=== PATIENT | female | born 1980 | race Caucasian/White ===

== ENCOUNTER 2021-03-04 13:05 | Outpatient (CLI) | payer BC, SELFPAY ==
[2021-03-04 14:50] LABS: HCG Quant, Pregnancy 38823 mIU/mL (1-3)
[2021-03-06 14:03] LABS: Chlamydia Result Negative (Negative); GC Result Negative (Negative)
== END 2021-03-04 13:06 | disposition home or self-care (01) ==
PROVIDERS: Visit Provider Advanced Practice Midwife
DX: O20.8 Other hemorrhage in early pregnancy (principal); Z3A.01 Less than 8 weeks gestation of pregnancy
CPT/HCPCS: 36415; 86850; 86900; 86901; 87491; 87591; 84702; 87480; 87510; 87660

== ENCOUNTER 2021-04-11 01:51 | Outpatient (CLI) | payer BC, SELFPAY ==
[2021-04-11 16:04] LABS: Kit/Specimen SENT
[2021-04-11 16:21] LABS: Abs Immature Grans 0.02 10^3/uL (0.0-0.06); Absolute Basophil Count 0.04 10^3/uL (0.0-0.2); Absolute Eosinophil Count 0.08 10^3/uL (0.0-0.7); Absolute Lymphocyte Count 1.88 10^3/uL (1.2-3.4); Absolute Monocyte Count 0.41 10^3/uL (0.1-0.8); Basophils % 0.5; HCT 37.3 % (36.0-46.0); HGB 12.9 g/dL (11.2-15.7); Immature Grans % 0.3; MCH 32.2 pg (27.0-33.0); MCHC 34.6 % (32.0-36.0); MPV 10.8 fL (8.0-11.0); Monocytes % 5.2; Nucleated RBC 0 %; Platelet Count 202 10^3/uL (130-400); RBC 4.01 10^6/uL (3.93-5.22); RDW 11.9 % (11.7-14.6); RDW-SD 40.5 fL; WBC 7.83 10^3/uL (4.4-10.8)
[2021-04-11 17:34] LABS: TSH (W/Ref FT4) 1.01 uIU/mL (0.36-3.74)
[2021-04-14 11:11] LABS: Varicella IgG Antibody Positive (See Note)
[2021-04-14 11:14] LABS: Rubella IgG Ab (UVM) Positive (See Note)
[2021-04-14 11:25] LABS: Hepatitis B Surface Ag Negative (Negative)
[2021-04-14 11:57] LABS: Hepatitis C Ab w Rflx HCV PCR Negative (Negative)
[2021-04-14 12:02] LABS: HIV-1/2 Ag & Ab Screen Negative (Negative)
[2021-04-14 16:11] LABS: Syphilis Total Ab w/Reflex Nonreactive (Nonreactive)
== END 2021-04-11 01:52 | disposition home or self-care (01) ==
LOC: LBO 01:51 → LBN 18:03
PROVIDERS: Visit Provider Advanced Practice Midwife
DX: Z34.91 Encounter for supervision of normal pregnancy, unspecified, first trimester (principal); Z11.3 Encounter for screening for infections with a predominantly sexual mode of transmission; Z11.4 Encounter for screening for human immunodeficiency virus [HIV]; Z11.59 Encounter for screening for other viral diseases; Z01.84 Encounter for antibody response examination
CPT/HCPCS: 80307; 86787; 86803; 86850; 86900; 86901; 87340; 87389; 87491; 87591; 84443; 85025; 86762; 86780; 87086

== ENCOUNTER 2021-04-11 19:29 | Outpatient (REF) | payer BC, SELFPAY ==
[2021-04-11 18:14] LABS: *AMPHETAMINES SCREEN URINE Negative (Negative); *BARBITURATES SCREEN URINE Negative (Negative); *BENZODIAZEPINES SCREEN URINE Negative (Negative); Cannabinoids THC Negative (Negative); Cocaine Screen,Urine Negative (Negative); METHADONE URINE SCREEN Negative (Negative); OPIATES URINE SCREEN Negative (Negative)
[2021-04-11 18:15] LABS: Tricyclic Antidepressants Negative (Negative)
[2021-04-14 15:20] LABS: Chlamydia Result Negative (Negative); GC Result Negative (Negative)
[2021-05-06 09:54] LABS: Buprenorphine Negative ng/mL (Cutoff: 5.0)
[2021-05-06 09:55] LABS: Norbuprenorphine Negative ng/mL (Cutoff: 2.5)
== END 2021-04-11 19:30 | disposition home or self-care (01) ==
LOC: LBN 19:29
PROVIDERS: Visit Provider Advanced Practice Midwife
DX: Z34.91 Encounter for supervision of normal pregnancy, unspecified, first trimester (principal); Z11.3 Encounter for screening for infections with a predominantly sexual mode of transmission
CPT/HCPCS: 80307; 87491; 87591; 87086

== ENCOUNTER 2021-07-11 01:18 | Outpatient (CLI) | payer BC, SELFPAY ==
[2021-07-11 12:48] LABS: TSH (W/Ref FT4) 2.32 uIU/mL (0.36-3.74)
== END 2021-07-11 01:19 | disposition home or self-care (01) ==
LOC: LBO 01:18
PROVIDERS: Visit Provider Obstetrics & Gynecology
DX: O99.282 Endocrine, nutritional and metabolic diseases complicating pregnancy, second trimester (principal); E07.9 Disorder of thyroid, unspecified; Z3A.19 19 weeks gestation of pregnancy
CPT/HCPCS: 36415; 84443

== ENCOUNTER 2021-08-08 02:55 | Outpatient (CLI) | payer BC, SELFPAY ==
[2021-08-08 10:28] LABS: Glucose,1 Hr (Glucola) 206 mg/dL (80-140)
== END 2021-08-08 02:56 | disposition home or self-care (01) ==
LOC: LBO 02:56
PROVIDERS: Obstetrics & Gynecology; Visit Provider Obstetrics & Gynecology
DX: Z34.93 Encounter for supervision of normal pregnancy, unspecified, third trimester (principal); Z3A.28 28 weeks gestation of pregnancy
CPT/HCPCS: 36415; 82950

== ENCOUNTER 2021-08-13 03:27 | Outpatient (CLI) | payer BC, SELFPAY ==
[2021-08-13 10:04] LABS: Glucose 1 Hour 155 mg/dL
[2021-08-13 11:42] LABS: Glucose 3 Hour 100 mg/dL
== END 2021-08-13 03:28 | disposition home or self-care (01) ==
LOC: LBO 03:27
PROVIDERS: Obstetrics & Gynecology Gynecology; Visit Provider Obstetrics & Gynecology
DX: O99.810 Abnormal glucose complicating pregnancy (principal)
CPT/HCPCS: 36415; 82951

== ENCOUNTER 2021-09-05 01:56 | Outpatient (CLI) | payer BC, SELFPAY ==
[2021-09-05 09:58] LABS: TSH (W/Ref FT4) 1.63 uIU/mL (0.36-3.74)
== END 2021-09-05 01:57 | disposition home or self-care (01) ==
LOC: LBO 01:56
PROVIDERS: Visit Provider Obstetrics & Gynecology
DX: O99.283 Endocrine, nutritional and metabolic diseases complicating pregnancy, third trimester (principal); Z3A.32 32 weeks gestation of pregnancy
CPT/HCPCS: 36415; 84443

== ENCOUNTER 2021-10-06 00:36 | Outpatient (CLI) | payer BC, SELFPAY ==
--- NOTE | 2021-10-06 06:30 | DI.US_ITS ---
Exam(s) US OB SHERRI WEIGHT EXAM: US OB SHERRI WEIGHT CLINICAL HISTORY: growth and SHERRI,advanced maternal age,Z34.90. TECHNIQUE: Transabdominal obstetrical ultrasound performed. COMPARISON: No exams were available for comparison FINDINGS:: Number of fetuses: One. position: Vertex. Placental location: Fundal. No evidence of previa. BIOMETRIC DATA: BPD: 91mm = 36+ 5 weeks HC: 320mm = 35+ 5 weeks AC: 326mm = 36+ 4 FL: 73 mm = 37+ 3 EFW: 3008 Gms = 61% Composite Age: 36+ 5 weeks EDC: 29 October 2021 Heart Rate: 155BPM Amniotic fluid index: 18.1 cm. Amount of fluid is within normal limits. IMPRESSION: size and weight are within the expected range. DATA REPOSITORY:
== END 2021-10-06 00:56 ==
PROVIDERS: Visit Provider Obstetrics & Gynecology
DX: O09.513 Supervision of elderly primigravida, third trimester (principal)
CPT/HCPCS: 76816

== ENCOUNTER 2021-10-06 08:35 | Outpatient (CLI) | payer BC, SELFPAY ==
[2021-10-06 08:41] VITALS: BP 115/74; PULSE 75; TEMP 37
[2021-10-06 09:00] VITALS: BP 115/74; PULSE 75
[2021-10-06 09:57] LABS: *AMPHETAMINES SCREEN URINE Negative (Negative); *BARBITURATES SCREEN URINE Negative (Negative); *BENZODIAZEPINES SCREEN URINE Negative (Negative); Cannabinoids THC Negative (Negative); Cocaine Screen,Urine Negative (Negative); METHADONE URINE SCREEN Negative (Negative); OPIATES URINE SCREEN Negative (Negative)
[2021-10-06 10:03] LABS: Tricyclic Antidepressants Negative (Negative)
[2021-10-12 10:27] LABS: Buprenorphine Negative ng/mL (Cutoff: 5.0)
[2022-04-02 08:09] VITALS: BP 115/74; PULSE 75; TEMP 37
--- NOTE | 2022-04-02 08:09 | W.OBNST ---
Date of service: 04/02/22 Time of Service: 07:09 NST Evaluation Reason for NST Reasons for Nonstress Test: ADVANCED MATERNAL AGE Gestational Age Gestational Age in Weeks and Days: 40 Weeks and 3Days Test and Monitor Explained Test/Monitor Explained: Test Explained, Monitor Explained and Patient Verbalized Understanding Vital Signs Blood Pressure: 115/74 Pulse: 75 Temperature: 98.6 F NST Information Date on Monitor: 10/06/21 Time on Monitor: 08:41 Date off Monitor: 10/06/21 Time off Monitor: 08:54 Total Time on Monitor: 13 NST Interventions: None NST Evaluation Patient States Movement: Present FHR Baseline: 135 Variability: Absent Accelerations: 15x15 Decelerations: None NST Results: Reactive Note NST Note Note: reactive NST. NST Reviewed and Verified by: Winsome Lester
== END 2021-10-06 08:57 | disposition home or self-care (01) ==
LOC: BCD 08:37 → OBS 08:39
PROVIDERS: Visit Provider Obstetrics & Gynecology Gynecology
DX: Z36.85 Encounter for antenatal screening for Streptococcus B (principal); O09.523 Supervision of elderly multigravida, third trimester
CPT/HCPCS: 59025; 80307; 87081

== ENCOUNTER 2021-10-13 07:39 | Outpatient (CLI) | payer BC, SELFPAY ==
[2021-10-13 09:48] VITALS: BP 108/67; PULSE 66; RESP 16; TEMP 36.6
--- NOTE | 2021-10-13 10:38 | W.OBNST ---
Date of service: 10/13/21 Time of Service: 10:38 NST Evaluation Reason for NST Reasons for Nonstress Test: ADVANCED MATERNAL AGE Gestational Age Gestational Age in Weeks and Days: 37 Weeks and 3Days Test and Monitor Explained Test/Monitor Explained: Patient Verbalized Understanding Vital Signs Blood Pressure: 108/67 Pulse: 66 Temperature: 97.8 F NST Information Date on Monitor: 10/13/21 Time on Monitor: 09:40 Date off Monitor: 10/13/21 Time off Monitor: 10:10 Total Time on Monitor: 30 NST Interventions: None and Notify Provider NST Evaluation Patient States Movement: Present FHR Baseline: 140 Variability: Moderate 6-25 bpm Accelerations: 15x15 Decelerations: None NST Results: Reactive Note NST Note Note: Reactive NST, category 1 strip. No contractions. Blood glucose monitoring appropriate. Group B strep culture is negative. Follow-up 1 week. NST Reviewed and Verified by: Shalonda German
[2021-10-13 10:39] VITALS: BP 108/67; PULSE 66; TEMP 36.6
== END 2021-10-13 10:20 | disposition home or self-care (01) ==
LOC: BCD 07:40 → OBS 09:41
PROVIDERS: Visit Provider Obstetrics & Gynecology
DX: O09.523 Supervision of elderly multigravida, third trimester (principal); Z3A.37 37 weeks gestation of pregnancy
CPT/HCPCS: 59025

== ENCOUNTER 2021-10-20 07:28 | Outpatient (CLI) | payer BC, SELFPAY ==
[2021-10-20 08:31] VITALS: BP 113/71; PULSE 61; TEMP 36.8
[2021-10-20 08:34] VITALS: BP 113/71; PULSE 61; RESP 16; TEMP 36.8
[2021-10-20 08:56] VITALS: BP 113/71; PULSE 61; TEMP 36.8
--- NOTE | 2021-10-20 11:15 | W.OBNST ---
Date of service: 10/20/21 Time of Service: 08:40 NST Evaluation Reason for NST Reasons for Nonstress Test: ADVANCED MATERNAL AGE Gestational Age Gestational Age in Weeks and Days: 38 Weeks and 3Days Test and Monitor Explained Test/Monitor Explained: Test Explained, Monitor Explained and Patient Verbalized Understanding Vital Signs Blood Pressure: 113/71 Pulse: 61 Temperature: 98.2 F NST Information Date on Monitor: 10/20/21 Time on Monitor: 08:32 NST Interventions: None Contraction Frequency: 0 NST Evaluation Patient States Movement: Present FHR Baseline: 135 Variability: Moderate 6-25 bpm Accelerations: 15x15 Decelerations: None NST Results: Reactive Note NST Note Note: Pt is a 41yo P4 @38.3wks here for NST due to AMA. We discussed increased monitoring vs induction at 39wks. She currently plans to return in 4 days for repeat NST and likely membrane stripping but would like to wait to schedule an induction. She also has an appt scheduled in 1wk. NST Reviewed and Verified by: Alberta Altman
[2021-10-20 11:17] VITALS: BP 113/71; PULSE 61; TEMP 36.8
== END 2021-10-20 09:10 | disposition home or self-care (01) ==
LOC: BCD 07:40 → OBS 08:28
PROVIDERS: Visit Provider Obstetrics & Gynecology Gynecology
DX: O09.523 Supervision of elderly multigravida, third trimester (principal); Z3A.38 38 weeks gestation of pregnancy
CPT/HCPCS: 59025

== ENCOUNTER 2021-10-24 08:25 | Outpatient (CLI) | payer BC, SELFPAY ==
[2021-10-24 13:13] VITALS: BP 127/76; PULSE 71; TEMP 36.7
[2021-10-24 13:20] VITALS: BP 127/76; PULSE 71
--- NOTE | 2021-10-24 14:52 | W.OBNST ---
Date of service: 10/24/21 Time of Service: 14:52 NST Evaluation Reason for NST Reasons for Nonstress Test: ADVANCED MATERNAL AGE Gestational Age Gestational Age in Weeks and Days: 39 Weeks and 0Days Test and Monitor Explained Test/Monitor Explained: Test Explained, Monitor Explained and Patient Verbalized Understanding Vital Signs Blood Pressure: 127/76 Pulse: 71 Temperature: 98.1 F NST Information Date on Monitor: 10/24/21 Time on Monitor: 13:16 Date off Monitor: 10/24/21 Time off Monitor: 13:36 Total Time on Monitor: 20 NST Interventions: None NST Evaluation Patient States Movement: Present FHR Baseline: 145 Variability: Moderate 6-25 bpm Accelerations: 15x15 Decelerations: None NST Results: Reactive Note NST Note Note: Patient was seen for NST at 39 weeks due to advanced maternal age. She is doing well. She has a category 1 strip with a reactive tracing. She has no uterine activity. Cervical exam performed at patient's request confirming a cervix that is closed, 50%, -2 station and vertex. She will be seen back on Wednesday for NST with SHERRI if not delivered by that point. NST Reviewed and Verified by: Shalonda German
[2021-10-24 14:53] VITALS: BP 127/76; PULSE 71; TEMP 36.7
== END 2021-10-24 13:45 | disposition home or self-care (01) ==
LOC: BCD 08:26 → OBS 13:11
PROVIDERS: Visit Provider Obstetrics & Gynecology
DX: O09.523 Supervision of elderly multigravida, third trimester (principal); Z3A.39 39 weeks gestation of pregnancy
CPT/HCPCS: 59025

== ENCOUNTER 2021-10-28 05:35 | Outpatient (CLI) | payer BC, SELFPAY ==
[2021-10-28 14:20] VITALS: BP 115/75; PULSE 68; TEMP 36.8
[2021-10-28 15:03] VITALS: BP 115/75; PULSE 68; TEMP 36.8
--- NOTE | 2021-10-28 15:03 | W.OBNST ---
Date of service: 10/28/21 Time of Service: 15:03 NST Evaluation Reason for NST Reasons for Nonstress Test: ADVANCED MATERNAL AGE Gestational Age Gestational Age in Weeks and Days: 39 Weeks and 4Days Test and Monitor Explained Test/Monitor Explained: Test Explained, Monitor Explained and Patient Verbalized Understanding Vital Signs Blood Pressure: 115/75 Pulse: 68 Temperature: 98.2 F Urine Results Urine Protein: Negative Urine Ketones: Negative Urine Glucose: Negative Urine Blood: Negative NST Information Date on Monitor: 10/28/21 Time on Monitor: 13:20 Date off Monitor: 10/28/21 Time off Monitor: 13:50 Total Time on Monitor: 30 NST Interventions: None NST Evaluation Patient States Movement: Present FHR Baseline: 150 Variability: Moderate 6-25 bpm Accelerations: 15x15 Decelerations: None NST Results: Reactive Note NST Note Note: Patient here today for surveillance due to advanced maternal age. She has a category 1, reactive nonstress test without uterine activity. Cervix was checked and found to be 2 cm 70% and fairly posterior. She is scheduled for induction of labor Pitocin on 10/29/2021. Risk benefits alternatives discussed with the patient. NST Reviewed and Verified by: Shalonda German
== END 2021-10-28 14:21 | disposition home or self-care (01) ==
LOC: BCD 05:37 → OBS 13:17
PROVIDERS: Visit Provider Obstetrics & Gynecology
DX: O09.523 Supervision of elderly multigravida, third trimester; Z3A.39 39 weeks gestation of pregnancy
CPT/HCPCS: 59025

== ENCOUNTER 2021-10-30 09:00 | Observation (INO) | payer BC, SELFPAY ==
--- NOTE | 2021-10-28 16:05 | W.PM.OBHPL1 ---
Date of service: 10/28/21 Time of Service: 16:05 Assessment and Plan Assessment and plan (1) : Status: Acute Assessment and plan: Patient is a 41-year-old female with history of precipitous labor and delivery with her previous . She is a grand multipara. She does have an elevated glucose tolerance test and has been checking her blood sugars intermittently which all have been normal. She has been in surveillance and she will have a labor induction at 39 weeks and 5 days. Risk benefits alternatives of induction were discussed along with increased risk for section. She is consented to Pitocin induction of labor. She is of moderate risk for shoulder dystocia due to gestational diabetes and moderate risk for bleeding due to grand multiparity along with first trimester bleeding. (2) Advanced maternal age (AMA), 40 years or greater: Status: Acute (3) Glucose intolerance of : Status: Acute OB-HPI Labor/Delivery History of Present Illness Reason for Visit: PRE NAZARIO Chief Complaint: Scheduled Induction of Labor Indication for Induction: Gestational Diabetes and Other (AMA). ETELVINA Calculator Estimated Delivery Date Method Current WG Current Estimate 10/31/21 Ultrasound #2 39w 4d Other Estimates 11/04/21 Ultrasound #1 39w 0d History of Present Expected Delivery Route/Plan - elects [facility] care FOB/ - Davey Parry, same for all children BG Specific Issues/Plan 1. Bleeding in first trimester 2. Rh negative (FOB negative as well - received documentation) 3. AMA. desires [place] 04/11/21: result= low prob x3, female fetus - Level II US and MFM visit to be done at 19 weeks at [facility] per patient preference: WNL, placenta anterior posterior right lateral, breech - Recommend: US at 34 weeks. 10/05/21. SHERRI 18. EFW 61% - NST semi weekly at 37 weeks. initiated on 10/05/21. - Delivery in 39th week 4. History of precipitous labor and delivery 5. Records release for previous SMA/CF/PAP done 04/11/21 5a. CF and SMA as well as Familial Disautonomia, Fragile X, Ritu's, Erick Sach's and Maple Syrup etc.: all negative 06/10/2017 5b. Pap EVELIO 05/17/2018 6. Diastasis recti- referred to PT 7. Impaired Glucose tolerance.(1 elevated value on 3hr GTT but 1hr >200). - Dietatry restrictions in place - Checking periodic FS - Growth sono at 36wks 10/05/21. SHERRI 18. EFW 61% Review of Systems All systems reviewed & are unremarkable except as noted in HPI and below Constitutional Constitutional: Denies chills, Denies fatigue, Denies lethargy and Denies poor appetite Eyes Eyes: Reports system reviewed and no additional complaints, except as documented ENT Ears, Nose, Mouth, and Throat: Reports system reviewed and no additional complaints, except as documented Cardiovascular Cardiovascular: Denies chest pain and Denies irregular heart rhythm Respiratory Respiratory: Denies chest congestion and Denies cough Gastrointestinal Gastrointestinal: Reports system reviewed and no additional complaints, except as documented Genitourinary Genitourinary: Reports system reviewed and no additional complaints, except as documented Musculoskeletal Musculoskeletal: Reports system reviewed and no additional complaints, except as documented Psychiatric Psychiatric: Reports system reviewed and no additional complaints, except as documented Endocrine Endocrine: Denies fatigue PFSH All Active Problems (Updated 08/26/21 @ 11:09 by Alberta Altman MD) Glucose intolerance of (Acute) Diastasis of rectus abdominis (Acute) (Acute) History of precipitous labor and deliveries in third trimester, antepartum (Acute) Rh negative status during (Acute) Antepartum bleeding, first trimester (Acute) Advanced maternal age (AMA), 40 years or greater (Acute) Bleeding in early (Acute) Family History (Updated 03/04/21 @ 16:37 by Karly Coyne CNM) Father Diabetes Heart disease Hyperlipidemia Hypertension Mother Thyroid disorder FH: brain aneurysm Paternal Aunt Ovarian cancer Social History (Updated 03/04/21 @ 16:38 by Karly Coyne CNM) Smoking/Tobacco Use Status: Never Second Hand Exposure: No Smoking risk assessment performed?: Yes Female Reproductive History Menstrual Age of Menarche: 12 control method: none History History 5 Para 4 Hx # Term Pregnancies 4 Multiple births 0 Hx # Pregnancies 0 Ectopic pregnancies 0 AB induced 0 Hx Number of Living Children 4 AB spontaneous 0 Past Pregnancies Del. Date GA/Weeks # Outcome Route Wgt Sex Labor Lgth Anesthesia Location Prov Complic 04/27/13 40 No Successful vaginal Male 6 09/03/15 40 No Successful vaginal Female 6 12/23/17 40 No Successful vaginal Female 3 11/06/19 40 No Successful vaginal Female precipitous Delivery Date: 04/27/13 born in [place], no complications, unable to tell weight or gestational age, just full term and average weight Karly Coyne Delivery Date: 09/03/15 Born in [place], unable to tell exact gestation just full term and 'average weight no complications of or Karly Coyne Delivery Date: 12/23/17 Born in [place], no complications or delivery complications, average weight full term Karly Coyne Delivery Date: 11/06/19 Born in [place], no complications, delivery complicated by precipitous labor and delivery then baby had pneumothorax but did well. Karly Coyne Meds Allergies and Home Medications Allergies Allergy/AdvReac Type Severity Reaction Status Date / Time No Known Allergies Allergy Verified 10/06/21 08:06 Home Medications Medication Instructions Recorded Confirmed Type vits no.126-ferrous fum 1 tab PO DAILY tab 03/04/21 10/27/21 History 28 mg iron-folic acid 800 mcg tablet Exam Physical Exam Vital Signs Reviewed: Yes Constitutional Constitutional: no acute distress, thin and cooperative Detailed Labor and Delivery Exam Dilation: 2 Effacement (%): 70 station: 0 Position: LUIS Cervix position: posterior Consistency: soft Reyes Score: Cervical Points Exam 0 1 2 3 Dilation Closed 1-2cm 3-4 cm 5-6cm Effacement 0-30% 40-50% 60-70% 80% Consistency Firm Medium Soft Station -3 -2 -1,0 +1,+2 Position Posterior Mid Anterior REYES Score(Cervical Ripeness Score): 8 Amniotic Membrane Status: Intact HEENT Exam HEENT Exam: Normal Neck Exam Neck Exam: Normal Respiratory Exam Respiratory Exam: Normal Cardiovascular Exam Cardiovascular Exam: Normal Abdominal Exam Abdominal Exam: Normal Detailed Extremities Exam Extremities: Absent cyanosis, clubbing, edema and Ivone's sign Results Results Group Beta Strep: Negative Blood Type: O- Rubella Status: Immune Varicella Immunity: Immune Abnormal Lab Findings: Elevated glucose tolerance test of 206. Risk Assessment Risk for Shoulder Dystocia Historical/Initial OB: NEGATIVE FOR: Pelvic Abnormality, Pre- BMI>30, Previous Shoulder Dystocia or Previous Macrosomia Risk for Pre-Eclampsia Yes, if one or more: NEGATIVE FOR: Hx Pre-E/Gest HTN, Chronic HTN, Multiple Gestation, Pre-gestational DM, Renal Disease, Systemic Lupus or APA Syndrome Yes, if 2 or more: POSITIVE FOR: Age>= 35 yrs Risk for Post- Hemorrhage Initial: POSITIVE FOR: Grand Multiparity; NEGATIVE FOR: Multiple Gestation, Previous PPH, Known Clotting Deficiency or Anticoagulation Risks Reviewed Risks Reviewed Upon Admission: Yes
[2021-10-30] VITALS (13 sets, daily range): BP systolic 108–139; BP diastolic 55–76; PULSE 65–113; RESP 16; TEMP 36.9–37.4; O2SAT 98–100
[2021-10-30 10:23] LABS: Source Nasal/Nares
[2021-10-30 11:10] LABS: COVID-19 PCR Negative (Negative)
--- NOTE | 2021-10-30 12:06 | PDOC.NST_ITS ---
Date of service: 10/30/21 Time of Service: 14:10 NST Evaluation Gestational Age Gestational Age in Weeks and Days: 39 Weeks and 6Days Note SHERRI Results of SHERRI: 10 cm NST Note Note: Present of the center for the possibility of a labor induction due to advanced maternal age, impaired glucose tolerance. She requested cervical examination of the cervix was found to be 1 cm, 70%. She was offered cervical ripening followed by Pitocin. After 45 minutes of conversation, she declined intervention. She does have a category 1 strip with a reactive nonstress test. Bedside ultrasound was also performed to confirm vertex position, and an amniotic fluid index of 10 cm. In light of this, with current reassuring status and relatively unfavorable cervix, I do feel it is appropriate that she be discharged home. She is scheduled for repeat nonstress test and evaluation on 11/01/2021. She was instructed on appropriate movement and kick counts. She w ishes to wait for spontaneous labor. She does understand that, with advanced maternal age, and aging placenta, her risks do increase. NST Reviewed and Verified by: Shalonda German
--- NOTE | 2021-10-30 14:12 | W.PM.PROGNOT ---
Date of Service Date of service: 10/30/21 Time of Service: 14:12 Subjective Subjective Patient reports: no new complaints Interval history since last seen: Patient was seen and evaluated on the center for the possibility of labor induction. This has been scheduled for a few days. On presentation, she has apprehension about labor induction. We spent 45 minutes in conversation regarding the appropriateness of labor induction at 39 weeks and 6 days with advanced maternal age. She also has a history of 1st trimester bleeding and has known glucose intolerance. She has a history of precipitous labors and deliveries in the past. Her cervix was found to be 1 cm, 70%, posterior. We did discuss the fact that this would require cervical ripening and the modalities were discussed. I do think that she would respond nicely both with a small amount of cervical ripening and Pitocin augmentation of her labor. At this point she declined intervention. Reassurance was given. Kick counts were discussed. She will be discharged to home and follow-up in 2 days for repeat nonstress testing. She does request that she have cervical lamination at that time. Objective Last Vital Signs Temp 98.5 F 10/30/21 11:41 Pulse 65 10/30/21 11:41 Resp 16 10/30/21 11:41 BP 112/55 L 10/30/21 11:41 Laboratory Results - last 24 hr 10/30/21 10:00 COVID-19 Source Nasal/Nares SARS-CoV-2 (PCR) Negative
== END 2021-10-30 12:25 | disposition home or self-care (01) ==
PROVIDERS: Obstetrics & Gynecology; Admitting Provider Obstetrics & Gynecology Gynecology; Visit Provider Obstetrics & Gynecology Gynecology
DX: O99.810 Abnormal glucose complicating pregnancy (principal); Z3A.39 39 weeks gestation of pregnancy; Z20.822 Contact with and (suspected) exposure to COVID-19
CPT/HCPCS: 87635; G0378

== ENCOUNTER 2021-11-01 08:24 | Outpatient (CLI) | payer BC, SELFPAY ==
[2021-11-01 08:32] VITALS: BP 118/66; PULSE 60; TEMP 36.8
[2021-11-01 08:38] VITALS: BP 118/66; PULSE 60; TEMP 36.8
[2021-11-01 09:09] VITALS: BP 118/66; PULSE 60; TEMP 36.8
--- NOTE | 2021-11-01 09:34 | W.OBNST ---
Date of service: 11/01/21 Time of Service: 09:40 NST Evaluation Reason for NST Reasons for Nonstress Test: ADVANCED MATERNAL AGE Gestational Age Gestational Age in Weeks and Days: 40 Weeks and 1Days Test and Monitor Explained Test/Monitor Explained: Test Explained, Monitor Explained and Patient Verbalized Understanding Vital Signs Blood Pressure: 118/66 Pulse: 60 Temperature: 98.2 F Urine Results Urine Protein: Negative Urine Ketones: Negative Urine Glucose: Negative Urine Blood: Positive NST Information Date on Monitor: 11/01/21 Time on Monitor: 08:29 Date off Monitor: 11/01/21 Time off Monitor: 08:51 Total Time on Monitor: 22 NST Interventions: None Contraction Frequency: x1 NST Evaluation Patient States Movement: Present FHR Baseline: 130 Variability: Moderate 6-25 bpm Accelerations: 15x15 Decelerations: None NST Results: Reactive Note NST Note Note: Pt here at 40.1wks for NST for AMA. Cx: 3/70/-1/soft/midplane. Membranes stripped. Offered AROM induction. She declines. Cautioned to call and/or come in as soon as anything changes. Will return tomorrow for repeat NST/eval. NST Reviewed and Verified by: Alberta Altman
[2021-11-01 09:43] VITALS: BP 118/66; PULSE 60; TEMP 36.8
== END 2021-11-01 09:17 | disposition home or self-care (01) ==
LOC: OBS 11-03 12:44 → BCD 11-03 12:44
PROVIDERS: Visit Provider Obstetrics & Gynecology
DX: O09.523 Supervision of elderly multigravida, third trimester (principal); O48.0 Post-term pregnancy; Z3A.40 40 weeks gestation of pregnancy
CPT/HCPCS: 59025

== ENCOUNTER 2021-11-02 07:48 | Outpatient (CLI) | payer BC, SELFPAY ==
[2021-11-02 11:24] VITALS: BP 122/78; PULSE 65; TEMP 36.8
[2021-11-02 11:25] VITALS: BP 122/78; PULSE 65
[2021-11-02 11:28] VITALS: BP 122/78; PULSE 65
[2021-11-02 11:59] VITALS: BP 122/78; PULSE 65; TEMP 36.8
--- NOTE | 2021-11-02 12:10 | W.OBNST ---
Date of service: 11/02/21 Time of Service: 12:12 NST Evaluation Reason for NST Reasons for Nonstress Test: POSTDATES and ADVANCED MATERNAL AGE Gestational Age Gestational Age in Weeks and Days: 40 Weeks and 2Days Test and Monitor Explained Test/Monitor Explained: Test Explained, Monitor Explained and Patient Verbalized Understanding Vital Signs Blood Pressure: 122/78 Pulse: 65 Temperature: 98.2 F Urine Results Urine Protein: Negative Urine Ketones: Negative Urine Glucose: Negative Urine Blood: Negative NST Information Date on Monitor: 11/02/21 Time on Monitor: Date off Monitor: 11/02/21 Time off Monitor: : Total Time on Monitor: 1 NST Interventions: None Contraction Frequency: x1 NST Evaluation Patient States Movement: Present FHR Baseline: 125 Variability: Moderate 6-25 bpm Accelerations: 15x15 Decelerations: None NST Results: Reactive Note SHERRI Results of SHERRI: 13.4 NST Note Note: Here for postdates NST. Has some irregular ctxs but no significant change since yesterday. Cx: 4/80/-1/soft/mid. We discussed the risks vs benefits of indcution via AROM with possible need for pitocin vs waiting another day. Current status is reassuring but we can't always predict or anticipate a stillbirth and that is our primary concern with postdates AMA. NST Reviewed and Verified by: Alberta Altman
[2021-11-02 12:15] VITALS: BP 122/78; PULSE 65; TEMP 36.8
== END 2021-11-02 14:40 | disposition home or self-care (01) ==
LOC: BCD 08:45 → OBS 10:25
PROVIDERS: Visit Provider Obstetrics & Gynecology
DX: O48.0 Post-term pregnancy (principal); O09.523 Supervision of elderly multigravida, third trimester; Z3A.40 40 weeks gestation of pregnancy
CPT/HCPCS: 59025; G0378

== ENCOUNTER 2021-11-03 09:30 | Inpatient (IN) | payer BC, SELFPAY ==
[2021-11-03] VITALS (13 sets, daily range): BP systolic 102–122; BP diastolic 64–76; PULSE 57–117; RESP 18–20; TEMP 36.7–37.6; O2SAT 97–100
[2021-11-03 11:23] LABS: Source Nasal/Nares
[2021-11-03 11:26] LABS: HCT 42.1 % (36.0-46.0); HGB 13.7 g/dL (11.2-15.7); MCH 32.2 pg (27.0-33.0); MCHC 32.5 % (32.0-36.0); MCV 98.8 fL (80-95); MPV 10.5 fL (8.0-11.0); Platelet Count 173 10^3/uL (130-400); RBC 4.26 10^6/uL (3.93-5.22); RDW-SD 43.8 fL; WBC 6.73 10^3/uL (4.4-10.8)
--- NOTE | 2021-11-03 13:19 | W.OBDELIVERY ---
Date of service: 11/03/21 Time of Service: 12:30 OB Labor/ Delivery Information Baby A Delivery Delivery Method: Spontaneaous Presentation: Cephalic Vertex Position: Right Occipital Anterior Cord Description-Baby A: 3 Vessels Cord Description Comment: nuchal cord x1 Amniotic Fluid: Meconium (light) Estimated Blood Loss: 200 Delivery Outcome: Liveborn Infant Transferred: Remains with Mother Note: The pt was found to be fully dilated. She pushed <20mins to deliver the infant's head in LUIS position, one nuchal cord easily reduced, followed by delivery of the shoulders and the rest of the body. The baby was placed on mom's abdomen. After >1min the cord was clamped x2 and cut. Cord blood collected. The placenta delivered with gentle cord traction and fundal massage and appeared intact. Fundus was firm with good hemostasis. Mom and baby stable at time of note. Providers Doctor: Alberta Altman Nurse: Anita Calloway Nurse: Khushbu Ramsey Labor/Delivery Information Number of Babies in Womb: 1 Reason Steroids Not Administered: N/A Group Beta Strep: Negative Maternal Complications: None Shoulder Dystocia: No Stages of Labor Onset of Labor Date: 11/03/21 Onset of Labor Time: 08:10 Complete Dilatation Date: 11/03/21 Complete Dilatation Time: 12:20 Labor - Stage 1 Duration: 0 minutes ROM Baby A: 11/03/21 ROM Baby A: 08:10 ROM Total Time- Baby A: [id number] Delivery Date-Baby A: 11/03/21 Delivery Time-Baby A: 12:39 Labor Stage 2 Duration: 19 minutes Placenta Delivery Date-Baby A: 11/03/21 Placenta Delivery Time-Baby A: 12:44 Labor-Stage 3 Duration: 5 minutes Total Length of Labor-Baby A: 4 hours and 29 minutes Placenta Cultured: No Placenta Status: Delivered Baby A Gender: Female Gestational Status: Term (39-41.6 wks) Gestational Age in Weeks/Days: 40 Weeks and 3 Days weight: 8 lb 7 oz Score-1 Minute Interval(Baby A) Heart Rate-1 minute: 100 BPM or Greater Respiratory Effort- 1 minute: Spontaneous/Strong Cry Muscle Tone-1 minute: Active Movement Reflex Response-1 minute: Prompt Response Color-1 minute: Pallor or Cyanosis Total Score-1 minute: 8 Score-5 Minute Interval(Baby A) Heart Rate- 5 minute: 100 BPM or Greater Respiratory Effort-5 minute: Spontaneous/Strong Cry Muscle Tone-5 minute: Active Movement Reflex Response-5 minute: Prompt Response Color-5 minute: Bluish Hands or Feet Total Score- 5 minute: 9
[2021-11-03 14:01] LABS: COVID-19 PCR Negative (Negative)
[2021-11-04 10:30] VITALS: BP 132/75; PULSE 77; RESP 16; TEMP 36.8
--- NOTE | 2021-11-04 10:45 | W.PM.OBPNV1 ---
Date of service: 11/04/21 Time of Service: 10:45 Assessment and Plan Assessment and plan (1) Normal spontaneous vaginal delivery: Status: Acute Assessment and plan: Patient is day #1 status post normal spontaneous vaginal delivery. was located by first trimester bleeding, impaired glucose tolerance, and advanced maternal age. She had onset of spontaneous labor and delivered a viable female infant. She is doing well day #1. I would anticipate discharge home tomorrow. She and her partner use a barrier method for contraception. They are planning another when her menses resume. (2) Glucose intolerance of : Status: Acute (3) Diastasis of rectus abdominis: Status: Acute Subjective Subjective Interval history: Patient seen and examined day #1. She is doing well. She is breast-feeding without difficulty. Lochia is physiologic. Her mood is appropriate. She would like to stay until tomorrow to continue to work on breast-feeding and some recovery. Patient comments: No complaints, Pain well controlled and Tolerating diet [place] baby status: Doing well, Nursing well, Rooming in and Strong Bonding Observed [place] feeding status: Exclusively breast feeding Exam Physical Exam Vital signs: Temp Pulse Resp BP Pulse Ox 98.1 F 57 L 18 118/66 97 11/03/21 20:00 11/03/21 20:00 11/03/21 20:00 11/03/21 20:00 11/03/21 16:54 Constitutional Constitutional: no acute distress HEENT Exam HEENT Exam: Normal Neck Exam Neck Exam: Normal Respiratory Exam Respiratory Exam: Normal Cardiovascular Exam Cardiovascular Exam: Normal Abdominal Exam Comments: Abdomen is soft and nontender. Uterus firm, 4 cm below the umbilicus. Moderate diastases recti Fundal Exam Fundus: Below Umbilicus and Firm Comment: Nontender Extremities Exam Extremity Exam: Normal and Full ROM; negative Calf Tenderness and Edema Skin Exam Skin Exam: Normal Neurological Exam Neurological Exam: Normal DetailedPsychiatric Exam Psych Exam: Normal Affect, Normal Thougth Process, Cooperative, Good Insight and Good Judgement Results Hemoglobin/Hematocrit: Hgb 13.7 g/dL (11.2-15.7) 11/03/21 11:15 Hct 42.1 % (36.0-46.0) 11/03/21 11:15 Abnormal Lab Findings: Abnormal Labs 11/03/21 11:15 MCV 98.8 H
[2021-11-04] MEDS: Docusate Sodium 100 MG CAP PO (11:13)
[2021-11-04 13:30] VITALS: BP 104/65; PULSE 66; TEMP 36.3
--- NOTE | 2021-11-04 13:30 | W.PM.OBHPL1 ---
Date of service: 11/03/21 Time of Service: 10:30 Assessment and Plan Assessment and plan (1) Active labor at term: Status: Acute OB-HPI Labor/Delivery History of Present Illness Reason for Visit: Term Labor Chief Complaint: Uterine Contractions; Suspected Rupture of Membranes (gross rupture) , Associated Signs and Symptoms of Suspected ROM: gross rupture. ETELVINA Calculator Estimated Delivery Date Method Current WG Current Estimate 10/31/21 Ultrasound #2 40w 4d Other Estimates 11/04/21 Ultrasound #1 40w 0d History of Present Expected Delivery Route/Plan - elects MD care FOB/ - Davey Parry, same for all children BG Specific Issues/Plan 1. Bleeding in first trimester 2. Rh negative (FOB negative as well - received documentation) 3. AMA. desires [place] 04/11/21: result= low prob x3, female fetus - Level II US and MFM visit to be done at 19 weeks at [facility] per patient preference: WNL, placenta anterior posterior right lateral, breech - Recommend: US at 34 weeks. 10/05/21. SHERRI 18. EFW 61% - NST semi weekly at 37 weeks. initiated on 10/05/21. - Delivery in 39th week 4. History of precipitous labor and delivery 5. Records release for previous SMA/CF/PAP done 04/11/21 5a. CF and SMA as well as Familial Disautonomia, Fragile X, Ritu's, Erick Sach's and Maple Syrup etc.: all negative 06/10/2017 5b. Pap EVELIO 05/17/2018 6. Diastasis recti- referred to PT 7. Impaired Glucose tolerance.(1 elevated value on 3hr GTT but 1hr >200). - Dietatry restrictions in place - Checking periodic FS - Growth sono at 36wks 10/05/21. SHERRI 18. EFW 61% Review of Systems Constitutional Constitutional: Denies chills and Denies fever(s) Genitourinary Genitourinary: Reports system reviewed and no additional complaints, except as documented PFSH All Active Problems (Updated 11/04/21 @ 13:34 by Alberta Altman MD) Active labor at term (Acute) Normal spontaneous vaginal delivery (Acute) Glucose intolerance of (Acute) Diastasis of rectus abdominis (Acute) attending PT visits Rh negative status during (Acute) Pt's is also Rh negative - lab results provided Advanced maternal age (AMA), 40 years or greater (Acute) Medical History (Updated 11/04/21 @ 13:34 by Alberta Altman MD) History of precipitous labor and deliveries in third trimester, antepartum Family History (Updated 03/04/21 @ 16:37 by Karly Coyne CNM) Father Diabetes Heart disease Hyperlipidemia Hypertension Mother Thyroid disorder FH: brain aneurysm Paternal Aunt Ovarian cancer Social History (Updated 03/04/21 @ 16:38 by Karly Coyne CNM) Smoking/Tobacco Use Status: Never Second Hand Exposure: No Smoking risk assessment performed?: Yes Alcohol Intake: never Drug use: Never Substance use type: does not use Do you feel safe at home: Yes Do you feel safe in your relationship?: Yes Female Reproductive History Menstrual Age of Menarche: 12 control method: none History History 5 Para 4 Hx # Term Pregnancies 4 Multiple births 0 Hx # Pregnancies 0 Ectopic pregnancies 0 AB induced 0 Hx Number of Living Children 4 AB spontaneous 0 Past Pregnancies Del. Date GA/Weeks # Outcome Route Wgt Sex Labor Lgth Anesthesia Location Prov Complic 04/27/13 40 No Successful vaginal Male 6 09/03/15 40 No Successful vaginal Female 6 12/23/17 40 No Successful vaginal Female 3 11/06/19 40 No Successful vaginal Female precipitous Delivery Date: 04/27/13 born in [place], no complications, unable to tell weight or gestational age, just full term and average weight Karly Coyne Delivery Date: 09/03/15 Born in [place], unable to tell exact gestation just full term and 'average weight no complications of or Karly Coyne Delivery Date: 12/23/17 Born in [place], no complications or delivery complications, average weight full term Karly Coyne Delivery Date: 11/06/19 Born in [place], no complications, delivery complicated by precipitous labor and delivery then baby had pneumothorax but did well. Karly Coyne Meds Allergies and Home Medications Allergies Allergy/AdvReac Type Severity Reaction Status Date / Time No Known Allergies Allergy Verified 11/03/21 11:06 Home Medications Medication Instructions Recorded Confirmed Type vits no.126-ferrous fum 1 tab PO DAILY tab 03/04/21 11/03/21 History 28 mg iron-folic acid 800 mcg tablet Exam Physical Exam Vital signs: Temp Pulse Resp BP Pulse Ox 98.1 F 57 L 18 118/66 97 11/03/21 20:00 11/03/21 20:00 11/03/21 20:00 11/03/21 20:00 11/03/21 16:54 Constitutional Constitutional: mild distress and cooperative Detailed Labor and Delivery Exam Dilation: 6 station: 0 (per RN) Rangel Score: Cervical Points Exam 0 1 2 3 Dilation Closed 1-2cm 3-4 cm 5-6cm Effacement 0-30% 40-50% 60-70% 80% Consistency Firm Medium Soft Station -3 -2 -1,0 +1,+2 Position Posterior Mid Anterior Amniotic Membrane Status: Ruptured (grossly) Rupture Method: Spontaneous Amniotic Fluid: Clear Fetus A Heart Rate Baseline: 140 Monitor Accelerations: 15 X 15 Monitor Decelerations: None Variability: Moderate (6-25 BPM) Presentation: Vertex Categories: Category I Date of Membrane Rupture: 11/03/21 Time of Membrane Rupture: 08:10 Detailed HEENT Exam Head: Present normocephalic and atraumatic Detailed Abdominal Exam Comments: gravid, nontender Exam Exam: Normal Detailed Neurological Exam Neurological: Present alert, oriented X3 and CN II-XII intact DetailedPsychiatric Exam Psychiatric: Present normal affect, normal thought process and cooperative Results Results Group Beta Strep: Negative Blood Type: O- Rubella Status: Immune Varicella Immunity: Immune Abnormal Lab Findings: Abnormal Labs 11/03/21 11:15 MCV 98.8 H Risk Assessment Risk for Shoulder Dystocia Historical/Initial OB: NEGATIVE FOR: Pelvic Abnormality, Pre- BMI>30, Previous Shoulder Dystocia or Previous Macrosomia Risk for Pre-Eclampsia Yes, if one or more: NEGATIVE FOR: Hx Pre-E/Gest HTN, Chronic HTN, Multiple Gestation, Pre-gestational DM, Renal Disease, Systemic Lupus or APA Syndrome Yes, if 2 or more: POSITIVE FOR: Age>= 35 yrs Risk for Post- Hemorrhage Initial: POSITIVE FOR: Grand Multiparity; NEGATIVE FOR: Multiple Gestation, Previous PPH, Known Clotting Deficiency or Anticoagulation Risks Reviewed Risks Reviewed Upon Admission: Yes
[2021-11-04 16:00] VITALS: BP 121/78; PULSE 67; RESP 16; TEMP 36.2; O2SAT 96
[2021-11-04 19:50] VITALS: BP 120/80; PULSE 57; RESP 18; TEMP 36.4
--- NOTE | 2021-11-05 07:21 | W.PM.OBPNV1 ---
Date of service: 11/05/21 Time of Service: 07:21 Assessment and Plan Assessment and plan (1) Normal spontaneous vaginal delivery: Status: Acute Assessment and plan: day #2 status post normal spontaneous vaginal deliveries at term. complicated by glucose intolerance and advanced maternal age. Doing well. Routine care. Discharge home today. (2) Glucose intolerance of : Status: Acute Subjective Subjective Interval history: Patient seen and examined this morning. Doing well. Ready for discharge. Breast-feeding without difficulty. Patient comments: No complaints and Pain well controlled Patient's Mood: Appropriate [place] baby status: Doing well and Rooming in feeding status: Exclusively breast feeding Exam Physical Exam Vital signs: Temp Pulse Resp BP Pulse Ox 97.6 F 57 L 18 120/80 96 11/04/21 19:50 11/04/21 19:50 11/04/21 19:50 11/04/21 19:50 11/04/21 16:00 Constitutional Constitutional: no acute distress HEENT Exam HEENT Exam: Normal Detailed Neck Exam Neck exam general surgery: Present supple Respiratory Exam Respiratory Exam: Normal Cardiovascular Exam Cardiovascular Exam: Normal Abdominal Exam Abdomen: Diastasis Comments: Soft, nontender, diastases present Fundal Exam Fundus: Below Umbilicus and Firm Extremities Exam Extremity Exam: Normal; negative Edema Skin Exam Skin Exam: Normal Psychiatric Exam Psychiatric Exam: Normal DetailedPsychiatric Exam Psych Exam: Normal Affect, Normal Thougth Process, Cooperative and Good Judgement Results Hemoglobin/Hematocrit: Hgb 13.7 g/dL (11.2-15.7) 11/03/21 11:15 Hct 42.1 % (36.0-46.0) 11/03/21 11:15 Abnormal Lab Findings: Abnormal Labs 11/03/21 11:15 MCV 98.8 H
--- NOTE | 2021-11-05 07:26 | DSE_ITS ---
Date of service: 11/05/21 Time of Service: 07:26 DS: Diagnosis Discharge Diagnosis (1) Normal spontaneous vaginal delivery: Status: Acute Asessment and Plan: day #2, doing well. Discharge home (2) Glucose intolerance of : Status: Acute (3) AMA (advanced maternal age) multigravida 35+: Status: Acute Discharge Plan Disposition Patient Disposition: HOME Condition: Good Discharge Details Reason For Visit: Term Labor Admit Date/Time: 11/03/21 09:30 Admit Provider: Alberta Altman Attending Provider: Alberta Altman Primary Care Provider: Unknown,Unknown Hospital Course Hospital Course: Patient presented to the center in early active labor. She is spontaneous rupture of membranes and went on to deliver a viable female . Her labor was normal course. She had an uncomplicated course and was discharged home day #2 ambulating, tolerating a regular diet and oral pain medication with her jaundice. She is breast-feeding working. Be seen back in the office in 6 weeks. Home Meds and New Rx's Prescriptions: New ibuprofen 800 mg tablet 800 mg PO Q8H PRNQty: 30 RF: 0 Continued Classic 28 mg iron- 800 mcg tablet 1 tab PO DAILY RF: 0 Discharge Instructions Stand Alone Forms: BC Post Vaginal Deliver Activity:: Pelvic rest Equipment/Supplies:: No Equipment Needed Diet:: As Tolerated Discharge Orders Discharge Orders: Discharge Order (Routine); Ordered 11/05/21 Ordered By: Shalonda German OB:DS Summary Summary Vaginal Delivery Method: Spontaneaous Laceration Description: Periurethral Laceration Extension: N/A Contraception Discussed Contraception Discussed: Yes Contraceptive Plan: Not planning to use, Infant Gender-Baby A: Female weight: 8 lb 7 oz Status at Discharge Functional status at discharge: independent ambulation Overall status at discharge: patient is back to baseline Mental Status: mental status grossly normal Speech and Movement: speech and movement normal Mood: congruent mood Affect: normal affect Exam Physical Exam Vital signs: Temp Pulse Resp BP Pulse Ox 97.6 F 57 L 18 120/80 96 11/04/21 19:50 11/04/21 19:50 11/04/21 19:50 11/04/21 19:50 11/04/21 16:00 Constitutional Comments: See physical exam from progress note dated 11/05/2021 [facility] All Active Problems AMA (advanced maternal age) multigravida 35+ (Acute) Active labor at term (Acute) Normal spontaneous vaginal delivery (Acute) Glucose intolerance of (Acute) Diastasis of rectus abdominis (Acute) attending PT visits Rh negative status during (Acute) Pt's is also Rh negative - lab results provided Advanced maternal age (AMA), 40 years or greater (Acute) Medical History History of precipitous labor and deliveries in third trimester, antepartum Family History Father Diabetes Heart disease Hyperlipidemia Hypertension Mother Thyroid disorder FH: brain aneurysm Paternal Aunt Ovarian cancer Social History Smoking/Tobacco Use Status: Never Second Hand Exposure: No Smoking risk assessment performed?: Yes Alcohol Intake: never Drug use: Never Substance use type: does not use Do you feel safe at home: Yes Do you feel safe in your relationship?: Yes Female Reproductive History Menstrual Age of Menarche: 12 control method: none History History 5 Para 4 Hx # Term Pregnancies 4 Multiple births 0 Hx # Pregnancies 0 Ectopic pregnancies 0 AB induced 0 Hx Number of Living Children 4 AB spontaneous 0 Past Pregnancies Del. Date GA/Weeks # Outcome Route Wgt Sex Labor Lgth Anesthes ia Location Prov Complic 04/27/13 40 No Successful vaginal Male 6 09/03/15 40 No Successful vaginal Female 6 12/23/17 40 No Successful vaginal Female 3 11/06/19 40 No Successful vaginal Female precipitous Delivery Date: 04/27/13 born in [place], no complications, unable to tell weight or gestational age, just full term and average weight Karly Coyne Delivery Date: 09/03/15 Born in [place], unable to tell exact gestation just full term and 'average weight no complications of or Karly Coyne Delivery Date: 12/23/17 Born in [place], no complications or delivery complications, average weight full term Karly Coyne Delivery Date: 11/06/19 Born in [place], no complications, delivery complicated by precipitous labor and delivery then baby had pneumothorax but did well. Karly Coyne DS: Data Vitals/I&O Vitals and I&O: Vital Signs Temperature 97.6 F 11/04/21 19:50 Pulse 57 L 11/04/21 19:50 Pulse Rhythm Regular 11/04/21 19:34 Respiratory Rate 18 11/04/21 19:50 Blood Pressure 120/80 11/04/21 19:50 Blood Pressure Mean 93 11/04/21 19:50 Pulse Oximetry 96 11/04/21 16:00 Oxygen Delivery Method Room Air 11/03/21 11:09 Oxygen Flow Rate 0 11/03/21 11:09 Comment 11/04/21 08:41
[2021-11-05 08:00] VITALS: BP 110/71; PULSE 59; TEMP 37; O2SAT 100
[2021-11-05] MEDS: Docusate Sodium 100 MG CAP PO (08:08)
== END 2021-11-05 10:00 | disposition home or self-care (01) | DRG 806 ==
PROVIDERS: Admitting Provider Obstetrics & Gynecology; Visit Provider Obstetrics & Gynecology
DX: O99.814 Abnormal glucose complicating childbirth (principal); O36.0930 Maternal care for other rhesus isoimmunization, third trimester, not applicable or unspecified; Z37.0 Single live birth; Z3A.40 40 weeks gestation of pregnancy; O69.81X0 Labor and delivery complicated by cord around neck, without compression, not applicable or unspecified; O71.89 Other specified obstetric trauma
CPT/HCPCS: 36415; 85027; 86850; 86900; 86901; 87635

== ENCOUNTER 2021-12-22 08:54 | Outpatient (REF) | payer BC, SELFPAY ==
--- NOTE | 2021-12-22 08:20 | PAPFT_PTH ---
PATIENT: Antonia George LOC: [facility] U#:[id number] AGE/SX: 41/F ROOM: RE12/22/[address]: Shalonda German DO : 1980 BED: DIS: 12/22/2021 SPEC #: [id number] RECD: 12/22/21 12:57 STATUS: CHANCE REQ #: [id number] SARAVANAN: 12/22/21 08:[address]: Shalonda German DEPT: [facility] Cytology RECD BY: Irlanda Sutton ENTERED: 12/22/21 12:58 SP TYPE: PAPFT OTHR DR: Unknown,Unknown Tissues: 1 - CX/ENDOCX FOR PAP SMEARS Procedures: PAP THIN PREP/UVM Screening HPV DNA PROBE Comments: [id number]
== END 2021-12-22 08:55 | disposition home or self-care (01) ==
LOC: LBN 08:54
PROVIDERS: Visit Provider Obstetrics & Gynecology
DX: Z12.4 Encounter for screening for malignant neoplasm of cervix (principal); Z11.51 Encounter for screening for human papillomavirus (HPV)
CPT/HCPCS: 88142; 87624

== ENCOUNTER 2022-01-13 03:03 | Outpatient (CLI) | payer BC, SELFPAY ==
[2022-01-13 10:25] LABS: GTT Comment See Comments
== END 2022-01-13 03:04 | disposition home or self-care (01) ==
LOC: LBO 03:03
PROVIDERS: Visit Provider Obstetrics & Gynecology
DX: E74.39 Other disorders of intestinal carbohydrate absorption (principal)
CPT/HCPCS: 36415; 82951

== ENCOUNTER 2023-04-27 02:07 | Outpatient (CLI) | payer BC, SELFPAY ==
[2023-04-27 10:50] LABS: Panorama Kit Sent via Fed Ex
[2023-04-27 10:55] LABS: Abs Immature Grans 0.01 10^3/uL (0.0-0.06); Absolute Basophil Count 0.05 10^3/uL (0.0-0.2); Absolute Eosinophil Count 0.03 10^3/uL (0.0-0.7); Absolute Lymphocyte Count 1.64 10^3/uL (1.2-3.4); Absolute Monocyte Count 0.28 10^3/uL (0.1-0.8); Absolute Neutrophil Count 2.75 10^3/uL (1.2-6.7); Basophils % 1.1; Eosinophils % 0.6; HCT 35.1 % (36.0-46.0); HGB 12.1 g/dL (11.2-15.7); Immature Grans % 0.2; Lymphocytes % 34.5; MCH 31.8 pg (27.0-33.0); MCHC 34.5 % (32.0-36.0); MCV 92 fL (80-95); MPV 10.1 fL (8.0-11.0); Monocytes % 5.9; Neutrophils % 57.7; Platelet Count 163 10^3/uL (130-400); RBC 3.81 10^6/uL (3.93-5.22); RDW 11.7 % (11.7-14.6); RDW-SD 39.6 fL; WBC 4.76 10^3/uL (4.4-10.8)
[2023-04-27 11:42] LABS: TSH (W/Ref FT4) 1.09 uIU/mL (0.36-3.74)
[2023-04-27 11:45] LABS: Hemoglobin A1C 4.9 % (<5.7)
[2023-04-28 10:11] LABS: Hepatitis B Surface Ag Negative (Negative)
[2023-04-28 10:48] LABS: HIV-1/2 Ag & Ab Screen Negative (Negative)
[2023-04-28 11:10] LABS: Varicella IgG Antibody Positive (See Note)
[2023-04-28 11:13] LABS: Rubella IgG Ab (UVM) Positive (See Note)
[2023-04-28 11:22] LABS: Hepatitis C Ab w Rflx HCV PCR Negative (Negative)
[2023-04-29 19:53] LABS: Syphilis IgG w/Reflex Nonreactive (Nonreactive)
== END 2023-04-27 02:08 | disposition home or self-care (01) ==
LOC: LBO 02:07
PROVIDERS: Visit Provider Advanced Practice Midwife
DX: O09.521 Supervision of elderly multigravida, first trimester (principal); Z64.1 Problems related to multiparity; Z3A.12 12 weeks gestation of pregnancy
CPT/HCPCS: 36415; 86787; 86803; 86850; 86900; 86901; 87340; 87389; 83036; 84443; 85025; 86762; 86780

== ENCOUNTER 2023-04-27 11:07 | Outpatient (REF) | payer BC, SELFPAY ==
[2023-04-27 12:16] LABS: *AMPHETAMINES SCREEN URINE Negative (Negative); *BARBITURATES SCREEN URINE Negative (Negative); *BENZODIAZEPINES SCREEN URINE Negative (Negative); Cannabinoids THC Negative (Negative); Cocaine Screen,Urine Negative (Negative); METHADONE URINE SCREEN Negative (Negative); OPIATES URINE SCREEN Negative (Negative)
[2023-04-27 12:17] LABS: Tricyclic Antidepressants Negative (Negative)
[2023-05-03 21:08] LABS: Buprenorphine Negative ng/mL (Cutoff: 5.0); Norbuprenorphine Negative ng/mL (Cutoff: 2.5)
== END 2023-04-27 11:08 | disposition home or self-care (01) ==
LOC: LBN 11:07
PROVIDERS: Visit Provider Advanced Practice Midwife
DX: Z34.91 Encounter for supervision of normal pregnancy, unspecified, first trimester (principal); Z3A.12 12 weeks gestation of pregnancy
CPT/HCPCS: 80307; 80348; 87086

== ENCOUNTER 2023-09-04 16:59 | Emergency (ER) | payer OTHER, SELFPAY ==
[2023-09-04 17:04] VITALS: BP 110/86; PULSE 77; RESP 18; TEMP 36.9; O2SAT 100
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
== END 2023-09-04 18:14 | disposition left against medical advice (07) ==
LOC: ER 18:14
PROVIDERS: Emergency Provider Emergency Medicine; PCP Internal Medicine
DX: S16.1XXA Strain of muscle, fascia and tendon at neck level, initial encounter (principal); S09.8XXA Other specified injuries of head, initial encounter; V47.0XXA Car driver injured in collision with fixed or stationary object in nontraffic accident, initial encounter
CPT/HCPCS: 99281; 99282

== ENCOUNTER 2023-10-28 13:23 | Outpatient (CLI) | payer BC, SELFPAY ==
[2023-10-28 13:20] LABS: TSH (W/Ref FT4) 1.36 uIU/mL (0.36-3.74)
[2023-10-28 23:39] LABS: Prolactin 3.7 ng/mL (See Note)
[2023-10-28 23:55] LABS: Progesterone 4.8 ng/mL (See Table)
== END 2023-10-28 13:24 | disposition home or self-care (01) ==
LOC: LBO 10-29 13:26
PROVIDERS: PCP Internal Medicine; Visit Provider Student in an Organized Health Care Education/Training Program
DX: Z31.9 Encounter for procreative management, unspecified (principal)
CPT/HCPCS: 36415; 84144; 84146; 84443